=== PATIENT | female | born 1975 | race Caucasian/White ===

== ENCOUNTER 2017-07-10 05:29 | Day surgery (SDC) | payer OTHER ==
[~2017-07-10] VITALS: Ht 175.3 cm; Wt 97.5 kg
[~2017-07-10 05:29] MED LIST: ABILIFY10 MG PO; CALCIUM + VITA1 EACH PO; EFFEXOR XR150 MG PO; Flagyl PO; GLUCOPHAGE500 MG PO; LAMICTAL150 MG PO; LEVOTHROID,S0.125 MG PO; LEXAPRO10 MG PO; Levaquin PO; MEDROL DOSEPAK4 MG PO; NAPROSYN500 MG PO; NEURONTIN300 MG PO; OMEPRAZOLE40 M1 PO; ONE DAILY1 EAC3 PO; PERCOCET 10/1 TABLET PO; SYNTHROID200 MCG PO; TOPAMAX100 MG PO; Vicodin,Norco 5/325 PO; ZANAFLEX4 MG PO
[2017-07-10 06:07] VITALS: BP 113/56
[2017-07-10 06:13] LABS: POINT-OF-CARE METER ID UU14174212
[2017-07-10 11:42] LABS: POINT-OF-CARE METER ID UU13113675
[2017-07-10 12:36] VITALS: BP 112/57
[2017-07-10 19:30] VITALS: BP 102/57
[2017-07-10 23:25] VITALS: BP 105/53
[2017-07-11 03:00] VITALS: BP 116/55
[2017-07-11 06:30] LABS: HEMATOCRIT 34.5 % (36.0-46.0); MCH 33.9 PG (29.0-34.0); MCHC 33.3 G/DL (30.0-36.0); MEAN PLAT.VOLUME 11.1 uM^3 (9.5-12.4); PLATELET COUNT 200 K/uL (156-360); RBC DIS.WIDTH-SD 49.1 % (39-53)
[2017-07-11 06:40] LABS: MCV 101.8 FL (83-99); RED BLOOD COUNT 3.39 M/uL (3.80-5.20)
[2017-07-11 07:06] VITALS: BP 107/52
[2017-07-11] MEDS ORDERED: ZOFRAN4 MG PO (08:22)
== END 2017-07-11 10:57 | disposition home or self-care (01) ==
LOC: SDC 05:29 → 2SOUTH 10:40 → 2EAST 10:40 → 2SOUTH 10:40 → ENRESERV 11:03 → 2EAST 12:27 → SDC 15:08 → 2EAST 07-11 10:57
PROVIDERS: Obstetrics & Gynecology
DX: N80.0 Endometriosis of uterus (principal); N72 Inflammatory disease of cervix uteri; N87.9 Dysplasia of cervix uteri, unspecified; N94.6 Dysmenorrhea, unspecified; K66.0 Peritoneal adhesions (postprocedural) (postinfection); E66.9 Obesity, unspecified; Z68.32 Body mass index [BMI] 32.0-32.9, adult; K21.9 Gastro-esophageal reflux disease without esophagitis; E11.9 Type 2 diabetes mellitus without complications; E03.9 Hypothyroidism, unspecified
CPT/HCPCS: 82948; 85027; 88302; 88305; 88307; G0378; J0131; J0690; J1100; J1170; J1885; J2250; J2405; J2710; J2765; J3010; J7120